=== PATIENT | female | born 1960 ===

== ENCOUNTER 2018-06-03 12:04 | Outpatient (CLI) | payer OTHER ==
[~2018-06-03 12:04] MED LIST: CALTRATE 600 +1 EACH PO; CLONAZEPAM0.5 MG PO; LAMICTAL200 MG PO
== END 2018-06-03 14:17 | disposition home or self-care (01) ==
LOC: MAMO-SONO 12:04
DX: C50.211 Malignant neoplasm of upper-inner quadrant of right female breast (principal)

== ENCOUNTER 2018-06-04 06:06 | Day surgery (SDC) | payer OTHER | END 2018-06-04 19:00 | disposition home or self-care (01) | LOC: CIR.AMB 06:06 | DX: D05.11 Intraductal carcinoma in situ of right breast (principal) ==